=== PATIENT | male | born 1980 | race Caucasian/White ===

== ENCOUNTER 2019-08-31 15:09 | Emergency (ER) | payer SELFPAY ==
[~2019-08-31] VITALS: Ht 170.2 cm; Wt 72.6 kg
--- NOTE | 2019-08-31 15:15 | NUR ---
ED Nurse Note: Pt walked into ED needing a med replacement. Pt states he ran out of [employer] and [employer] 3 days ago and hears voices in his head. No acute distress.
[2019-08-31 15:17] VITALS: BP 150/100
[2019-08-31] MEDS ORDERED: DEPAKOTE250 MG PO (15:21)
[2019-08-31] MEDS ORDERED: ABILIFY2 MG ORAL ×2 (15:21→15:54)
[2019-08-31] MEDS ORDERED: DEPAKOTE125 MG PO (15:54)
[2019-08-31 16:02] VITALS: BP 140/74
--- NOTE | 2019-08-31 16:02 | NUR ---
ER DISCHARGE NOTE: Patient is cleared to be discharged per ERMD, pt is aox4, on room air, with stable vital signs. pt was given dc and prescription instructions, pt refused to wait to get prescriptions filled at hosp pharmacy. pt id band removed. pt is able to ambulate with steady gait. pt took all belongings. Resources provided. Meal provided. Homeless log and mini cog filled out.
--- NOTE | 2019-08-31 17:09 | Emergency Room Report ---
History of Present Illness General Chief Complaint: Medication Refill Source: Patient Present Illness HPI 38-year-old male with history of schizophrenia presents for medication refill. He is requesting a refill on his Abilify and Depakote. He reports he has been out of his meds for 3 days because he lost them. He reports that he has been having auditory hallucinations. Denies SI or HI. Denies pain or any other symptoms. Admits to meth use. Allergies: Coded Allergies: No Known Allergies (Unverified , 08/31/19) Patient History Past Medical History: see triage record Past Surgical History: none Pertinent Family History: none Reviewed Nursing Documentation: PMH: Agreed; PSxH: Agreed Nursing Documentation-PMH Past Medical History: No Stated History Review of Systems All Other Systems: negative except mentioned in HPI Physical Exam Vital Signs Date Time Temp Pulse Resp B/P (MAP) Pulse Ox O2 Delivery O2 Flow Rate FiO2 08/31/19 15:11 98.4 116 18 166/105 (125) 98 Room Air Sp02 EP Interpretation: reviewed, normal General Appearance: no apparent distress, alert, GCS 15, non-toxic Head: normocephalic, atraumatic Eyes: bilateral eye normal inspection, bilateral eye PERRL ENT: hearing grossly normal, normal pharynx, no angioedema, normal voice Neck: full range of motion, supple/symm/no masses Respiratory: chest non-tender, lungs clear, normal breath sounds, speaking full sentences Cardiovascular #1: regular rate, rhythm, no edema Cardiovascular #2: 2+ carotid (R), 2+ carotid (L), 2+ radial (R), 2+ radial (L) , 2+ dorsalis pedis (R), 2+ dorsalis pedis (L) Gastrointestinal: normal bowel sounds, non tender, soft, non-distended, no guarding, no rebound Rectal: deferred Genitourinary: normal inspection, no CVA tenderness Musculoskeletal: back normal, normal range of motion, calf tenderness, gait/ station normal, non-tender Neurologic: alert, motor strength/tone normal, oriented x3, sensory intact, responsive, speech normal Psychiatric: judgement/insight normal, memory normal, mood/affect normal, no suicidal/homicidal ideation Suicide Risk Assessment: Suicidal Ideation: No Had intent to initiate attempt: No Pt's plan for suicide attempt: No Has means to complete attempt: No Reflexes: 3+ bicep (R), 3+ bicep (L), 3+ tricep (R), 3+ tricep (L), 3+ knee (R) , 3+ knee (L) Skin: no rash, warm/dry Lymphatic: no adenopathy Medical Decision Making PA Attestation Dr. Hendrix is my supervising physician whom patient management and care has been discussed with. Behavioral: Schizophrenia Diagnostic Impression: Primary Impression: Encounter for medication refill ER Course Pt. presents to the ED c/o auditory hallucinations, requesting medication refill. Ddx considered but are not limited to schizophrenia, psychosis, bipolar disorder , depression, anxiety, SI, HI. Vital signs: are WNL, pt. is afebrile H&PE are most consistent with auditory hallucinations due to running out of medications. ORDERS: none required at this time, the diagnosis is clinical ED INTERVENTIONS: None required at this time. DISCHARGE: At this time pt. is stable for d/c to home. Will provide printed patient care instructions, and refills for Depakote and Abilify. Care plan and follow up instructions have been discussed with the patient prior to discharge. Last Vital Signs Date Time Temp Pulse Resp B/P (MAP) Pulse Ox O2 Delivery O2 Flow Rate FiO2 08/31/19 16:02 98.4 74 19 140/74 99 Room Air Disposition: HOME, SELF-CARE Condition: Stable Scripts Aripiprazole* (ABILIFY*) 2 Mg Tablet 2 MG ORAL DAILY, #14 TAB Prov: Brit Mauro PElizabeth 08/31/19 Divalproex Sodium (DEPAKOTE) 125 Mg Tablet. 250 MG PO Q12HR, #28 TAB Prov: Brit Mauro 08/31/19 Referrals: NOT CHOSEN IPA/,REFERRING (PCP) Patient Instructions: Medicine Refill at the Emergency Department Additional Instructions: Return with worsening or new symptoms. Take medications as directed. Brit Mauro Aug 31, 2019 17:09
== END 2019-08-31 16:02 | disposition home or self-care (01) ==
LOC: EDBD 15:09 → EMR 15:47
DX: F20.9 Schizophrenia, unspecified (principal); Z76.0 Encounter for issue of repeat prescription
CPT/HCPCS: 99282